=== PATIENT | female | born 1985 | race Caucasian/White ===

== ENCOUNTER 2021-07-06 07:00 | Emergency (ER) | payer BC ==
[~2021-07-06] VITALS: Ht 165.1 cm; Wt 70.8 kg
[2021-07-06] MEDS ORDERED: ACETAMINOPHEN 325 MG TABLET PO ONE (07:15)
[2021-07-06] MEDS ORDERED: ACETAMINOPHEN 325 MG TABLET ONE (07:24)
[2021-07-06 07:30] LABS: *URINE HCG, QUAL NEGATIVE (NEGATIVE)
[2021-07-06] MEDS ORDERED: ALBU6.7H9 INH (07:33)
[2021-07-06] MEDS ORDERED: METH4TAB3 PO (07:33)
[2021-07-06 07:43] VITALS: BP 126/80
--- NOTE | 2021-07-06 07:43 | NUR ---
Patient discharged to home in stable condition. Written and verbal after care instructions given. Patient verbalizes understanding of instructions. Stressed follow up or return to ER for worsening s/s.
== END 2021-07-06 07:44 | disposition home or self-care (01) ==
LOC: ER 07:00
DX: U07.1 COVID-19 (principal); Z88.0 Allergy status to penicillin
CPT/HCPCS: 84703; A4663